=== PATIENT | male | born 1940 | race Asian ===

== ENCOUNTER 2018-10-11 13:35 | Observation (INO) | payer OTHER, MEDICAID ==
[2018-10-11 14:19] LABS: ADD MAN DIFF? NO
[2018-10-11 14:22] LABS: BASOPHILS % 0.2 % (0.0-2.0); EOSINOPHILS % 0.2 % (0.0-7.0); HEMATOCRIT 39.3 % (42.0-52.0); HEMOGLOBIN 13.8 g/dl (14.0-18.0); LYMPHOCYTES # 1.2 10^3/ul (0.8-2.9); LYMPHOCYTES % 9.7 % (15.0-51.0); MEAN CORPUSCULAR HEMOGLOBIN 31.7 pg (29.0-33.0); MEAN CORPUSCULAR HGB CONC 35.1 g/dl (32.0-37.0); MEAN CORPUSCULAR VOLUME 90.1 fl (82.0-101.0); MEAN PLATELET VOLUME 8.7 fl (7.4-10.4); MONOCYTE # 0.9 10^3/ul (0.3-0.9); MONOCYTES % 6.8 % (0.0-11.0); NEUTROPHIL # 10.5 10^3/ul (1.6-7.5); NEUTROPHILS % 82.5 % (39.0-77.0); PLATELET COUNT 311 10^3/UL (140-415); RED BLOOD COUNT 4.36 10^6/ul (4.70-6.10); RED CELL DISTRIBUTION WIDTH 12.7 % (11.5-14.5)
[2018-10-11 14:22] LABS: WHITE BLOOD COUNT 12.7 10^3/ul (4.8-10.8)
[2018-10-11] MEDS: SOD CHLORIDE 0.9% 1,000 ML IV (14:25)
[2018-10-11 14:50] LABS: ANION GAP 17 (5-13); BLOOD UREA NITROGEN 42 mg/dl (7-20); CALCIUM 9.7 mg/dl (8.4-10.2); CARBON DIOXIDE 26 mmol/L (21-31); CHLORIDE 89 mmol/L (97-110); GLUCOSE 184 mg/dl (70-220); SODIUM 132 mmol/L (135-144)
[2018-10-11 14:58] LABS: POTASSIUM 2.9 mmol/L (3.5-5.1)
[2018-10-11 15:02] LABS: TROPONIN-I < 0.012 ng/ml (0.000-0.120)
[2018-10-11] MEDS ORDERED: ONDANSETRON 4 MG INJ IV ×2 (16:00→18:30)
[2018-10-11] MEDS: POTASSIUM CHLORIDE 100 ML IVPB (16:27)
[2018-10-11] MEDS ORDERED: ZOLPIDEM 5 MG TAB PO (18:30)
[2018-10-11] MEDS: POTASSIUM CHLORIDE 40 MEQ in SOD CHLORIDE 0.9% 1,000 ML IV (20:41)
[2018-10-11] MEDS: POTASSIUM CHLORIDE (SR) 20 MEQ TAB PO (20:41)
[2018-10-11] MEDS: ATORVASTATIN 20 MG TAB PO (20:42)
[2018-10-11] MEDS: ACETAMINOPHEN 325 MG TAB PO (20:42)
[2018-10-11] MEDS: INSULIN ASPART [NOVOLOG] 3 ML PEN SC (21:00)
[2018-10-12 05:35] LABS: ANION GAP 10 (5-13); BLOOD UREA NITROGEN 28 mg/dl (7-20); CALCIUM 9.2 mg/dl (8.4-10.2); CARBON DIOXIDE 23 mmol/L (21-31); CHLORIDE 107 mmol/L (97-110); CREATININE 1.67 mg/dl (0.61-1.24); GLUCOSE 107 mg/dl (70-220); SODIUM 140 mmol/L (135-144)
[2018-10-12] MEDS: POTASSIUM CHLORIDE 40 MEQ in SOD CHLORIDE 0.9% 1,000 ML IV (07:00)
[2018-10-12] MEDS: INSULIN ASPART [NOVOLOG] 3 ML PEN SC ×2 (07:59→12:08)
[2018-10-12] MEDS: LOSARTAN 50 MG TAB PO (08:14)
[2018-10-12] MEDS: ASPIRIN 81 MG TAB PO (08:15)
[2018-10-12] MEDS: POTASSIUM CHLORIDE (SR) 20 MEQ TAB PO (08:15)
== END 2018-10-12 17:23 | disposition home or self-care (01) ==
LOC: E/R 13:35 → 6WM 18:14
DX: R55 Syncope and collapse (principal); E87.6 Hypokalemia; E87.5 Hyperkalemia; I12.9 Hypertensive chronic kidney disease with stage 1 through stage 4 chronic kidney disease, or unspecified chronic kidney disease; E11.22 Type 2 diabetes mellitus with diabetic chronic kidney disease; N18.3 Chronic kidney disease, stage 3 (moderate); Z79.82 Long term (current) use of aspirin
CPT/HCPCS: 36415; 80048; 82962; 84484; 85025; 93005; 99285-25

== ENCOUNTER 2018-10-15 07:30 | Emergency (ER) | payer OTHER ==
[2018-10-15] MEDS: KETOROLAC 15 MG INJ IV (07:59)
[2018-10-15] MEDS: LACTATED RINGER'S 1,000 ML IV (08:00)
[2018-10-15 08:08] LABS: ADD MAN DIFF? NO
[2018-10-15 08:12] LABS: BASOPHIL # 0.1 10^3/ul (0.0-0.1); BASOPHILS % 0.4 % (0.0-2.0); EOSINOPHILS % 0.3 % (0.0-7.0); HEMATOCRIT 36.7 % (42.0-52.0); HEMOGLOBIN 12.4 g/dl (14.0-18.0); LYMPHOCYTES # 1.5 10^3/ul (0.8-2.9); LYMPHOCYTES % 12.4 % (15.0-51.0); MEAN CORPUSCULAR HEMOGLOBIN 31.3 pg (29.0-33.0); MEAN CORPUSCULAR HGB CONC 33.8 g/dl (32.0-37.0); MEAN CORPUSCULAR VOLUME 92.7 fl (82.0-101.0); MEAN PLATELET VOLUME 8.9 fl (7.4-10.4); MONOCYTE # 0.9 10^3/ul (0.3-0.9); MONOCYTES % 7.2 % (0.0-11.0); NEUTROPHIL # 9.4 10^3/ul (1.6-7.5); NEUTROPHILS % 79.3 % (39.0-77.0); PLATELET COUNT 329 10^3/UL (140-415); RED BLOOD COUNT 3.96 10^6/ul (4.70-6.10); RED CELL DISTRIBUTION WIDTH 12.7 % (11.5-14.5)
[2018-10-15 08:12] LABS: WHITE BLOOD COUNT 11.8 10^3/ul (4.8-10.8)
[2018-10-15 08:34] LABS: ALANINE AMINOTRANSFERASE 144 IU/L (13-69); ALBUMIN 4.2 g/dl (3.3-4.9); ALBUMIN/GLOBULIN RATIO 0.97; ALKALINE PHOSPHATASE 174 IU/L (42-121); ANION GAP 9 (5-13); ASPARTATE AMINO TRANSFERASE 109 IU/L (15-46); BILIRUBIN,INDIRECT 1.2 mg/dl (0-1.1); BILIRUBIN,TOTAL 1.2 mg/dl (0.2-1.3); BLOOD UREA NITROGEN 16 mg/dl (7-20); CALCIUM 9.5 mg/dl (8.4-10.2); CARBON DIOXIDE 27 mmol/L (21-31); CHLORIDE 101 mmol/L (97-110); CREATININE 1.17 mg/dl (0.61-1.24); GLUCOSE 169 mg/dl (70-220); LIPASE 298 U/L (23-300); SODIUM 137 mmol/L (135-144); TOTAL PROTEIN 8.5 g/dl (6.1-8.1)
== END 2018-10-15 10:56 | disposition home or self-care (01) ==
LOC: E/R 07:30
DX: M25.461 Effusion, right knee (principal); M25.462 Effusion, left knee; M10.061 Idiopathic gout, right knee; I12.9 Hypertensive chronic kidney disease with stage 1 through stage 4 chronic kidney disease, or unspecified chronic kidney disease; N18.3 Chronic kidney disease, stage 3 (moderate); E11.22 Type 2 diabetes mellitus with diabetic chronic kidney disease; Z79.82 Long term (current) use of aspirin
CPT/HCPCS: 36415; 80053; 83690; 85025; 96374; 99284-25